=== PATIENT | male | born 1965 | race Caucasian/White ===

== ENCOUNTER 2017-03-24 03:45 | Inpatient (IN) | payer OTHER ==
[~2017-03-24] VITALS: Ht 172.7 cm; Wt 107.2 kg
[2017-03-24] VITALS (17 sets, daily range): BP systolic 90–151; BP diastolic 67–128
[2017-03-24 04:27] LABS: BASE EXCESS 0.7 mEq/L (-3 to +3); BICARBONATE 29.3 mEq/L (22-26); METHEMOGLOBIN 0.6 % (0-1.5); PCO2 61 mm Hg (35-45); PO2 127 mm Hg (80-100)
[2017-03-24 04:28] LABS: COMMENTS - BLOOD GASES A+C+; DEVICE VENT; FI02 50 %; MODE SPONT; PEEP 5 CM/H20; PRES. SUPPORT 10 CM/H2O; SITE RR; TOTAL RESP RATE 28 resp/min; pH 7.29 (7.35-7.45)
[2017-03-24 04:59] LABS: BASOPHIL COUNT 0.1 K/uL (0-0.1); EOSINOPHIL (%) 0.1 % (0-5); HEMATOCRIT 52.6 % (38.0-50.0); IMMATURE GRANULOCYTE (%) 0.6 % (0.0-0.7); IMMATURE GRANULOCYTE COUNT 0.1 K/uL; LYMPHOCYTE COUNT 2.1 K/uL (1.0-2.8); MCH 29.3 PG (29.0-34.0); MCHC 31.4 G/DL (30.0-36.0); MCV 93.3 FL (86-99); MEAN PLAT.VOLUME 8.9 uM^3 (9.0-12.4); MONOCYTE (%) 8.9 % (3-12); MONOCYTE COUNT 1.3 K/uL (0-0.8); NEUTROPHIL (%) 75.9 % (45-76); PLATELET COUNT 292 K/uL (156-360); RBC DIS.WIDTH-CV 13.4 % (11.8-14.6); RBC DIS.WIDTH-SD 46.1 % (39-53); RED BLOOD COUNT 5.64 M/uL (4.00-5.50); WHITE BLOOD COUNT 14.5 K/uL (4.1-10.2)
[2017-03-24 05:06] LABS: INTER. NORMALIZED RATIO 1.1; PROTHROMBIN TIME 12.5 SEC (10.2-12.9)
[2017-03-24 05:09] LABS: PTT 31.2 SEC (25-37)
[2017-03-24 05:10] LABS: CHLORIDE 103 mEq/L (99-109); POTASSIUM 4.5 mEq/L (3.7-5.4); SODIUM 143 mEq/L (136-147)
[2017-03-24 05:12] LABS: GLUCOSE 152 mg/dL (70-99)
[2017-03-24 05:14] LABS: ANION GAP 16 MEQ/L (2-14); TOTAL BILIRUBIN 0.5 mg/dL (0.0-1.0)
[2017-03-24 05:16] LABS: ALKALINE PHOSPHATASE 106 IU/L (3-129); GFR ESTIMATE (CALCULATED) > 59 mL/min/
[2017-03-24 05:17] LABS: UREA NITROGEN (BUN) 14 mg/dL (9-23)
[2017-03-24 05:19] LABS: LIPASE 10 U/L (1.0-51.0)
[2017-03-24 05:22] LABS: TROP-I INTERPRETATION NEGATIVE; TROPONIN-I < 0.01 ng/mL (0.0-0.30)
[2017-03-24 05:45] LABS: BASE EXCESS 1.4 mEq/L (-3 to +3); BICARBONATE 30.5 mEq/L (22-26); CARBOXY HGB 1.1 % (0-5); COMMENTS - BLOOD GASES A+C+; DEVICE VENT; FI02 50 %; METHEMOGLOBIN 0.6 % (0-1.5); PCO2 65 mm Hg (35-45); PO2 104 mm Hg (80-100); SITE RR; pH 7.28 (7.35-7.45)
[2017-03-24 05:46] LABS: MODE SPONT; PEEP 5 CM/H20; PRES. SUPPORT 10 CM/H2O; TOTAL RESP RATE 20 resp/min
[2017-03-24] MEDS ORDERED: ADVAIR 500/501 DISK IH (08:38)
[2017-03-24] MEDS ORDERED: COMBIVENT RESPIM4 GM IH (08:39)
[2017-03-24] MEDS ORDERED: PRILOSEC20 MG PO (08:39)
[2017-03-24] MEDS ORDERED: ALBUTEROL2.5 MG/3 M IH (08:44)
[2017-03-24 09:11] LABS: METH RESISTANT S AUREUS PCR NEGATIVE (NEGATIVE)
[2017-03-24 09:12] LABS: PROBE CHECK PASS; SPECIMEN PROCESSING CONTROL PASS
[2017-03-25] VITALS (17 sets, daily range): BP systolic 100–151; BP diastolic 62–100
[2017-03-25 05:07] LABS: EOSINOPHIL (%) 0 % (0-5); HEMATOCRIT 47.9 % (38.0-50.0); IMMATURE GRANULOCYTE (%) 0.7 % (0.0-0.7); IMMATURE GRANULOCYTE COUNT 0.1 K/uL; LYMPHOCYTE COUNT 0.9 K/uL (1.0-2.8); MCH 30.3 PG (29.0-34.0); MCHC 31.7 G/DL (30.0-36.0); MCV 95.6 FL (86-99); MEAN PLAT.VOLUME 8.8 uM^3 (9.0-12.4); MONOCYTE (%) 7.1 % (3-12); MONOCYTE COUNT 0.6 K/uL (0-0.8); NEUTROPHIL (%) 81.6 % (45-76); PLATELET COUNT 279 K/uL (156-360); RBC DIS.WIDTH-CV 13.7 % (11.8-14.6); RBC DIS.WIDTH-SD 48.6 % (39-53); RED BLOOD COUNT 5.01 M/uL (4.00-5.50); WHITE BLOOD COUNT 8.6 K/uL (4.1-10.2)
[2017-03-25 05:43] LABS: BICARBONATE 30.9 mEq/L (22-26); CARBOXY HGB 0.9 % (0-5); METHEMOGLOBIN 0.9 % (0-1.5); pH 7.32 (7.35-7.45)
[2017-03-25 05:44] LABS: COMMENTS - BLOOD GASES A+C+; DEVICE MASK VENT; FI02 28 %; MODE SPONT; PCO2 60 mm Hg (35-45); PEEP 5 CM/H20; PO2 77 mm Hg (80-100); PRES. SUPPORT 12 CM/H2O; SITE LR; TOTAL RESP RATE 16 resp/min
[2017-03-25 05:46] LABS: ALKALINE PHOSPHATASE 73 IU/L (3-129); ANION GAP 7 MEQ/L (2-14); CHLORIDE 106 MEQ/L (99-109); GFR ESTIMATE (CALCULATED) > 59 mL/min/; GLUCOSE 137 mg/dL (70-99); MAGNESIUM 2.7 mg/dl (1.3-2.7); POTASSIUM 5.1 MEQ/L (3.7-5.4); SAMPLE HEMOLYSIS CHECK 0; SAMPLE ICTERIC CHECK 0; SAMPLE LIPEMIA CHECK 0; SODIUM 144 MEQ/L (136-147); TOTAL BILIRUBIN 0.4 MG/DL (0.0-1.0); UREA NITROGEN (BUN) 17 mg/dL (9-23)
[2017-03-26] VITALS (21 sets, daily range): BP systolic 95–146; BP diastolic 48–98
[2017-03-26 05:33] LABS: EOSINOPHIL (%) 0 % (0-5); HEMATOCRIT 46.4 % (38.0-50.0); IMMATURE GRANULOCYTE (%) 0.8 % (0.0-0.7); IMMATURE GRANULOCYTE COUNT 0.1 K/uL; INSTRUMENT ABS NEUTROPHIL CT 8.6 K/uL; MCH 30.4 PG (29.0-34.0); MCHC 31.7 G/DL (30.0-36.0); MCV 95.9 FL (86-99); MEAN PLAT.VOLUME 9.4 uM^3 (9.0-12.4); MONOCYTE (%) 6.8 % (3-12); MONOCYTE COUNT 0.7 K/uL (0-0.8); NEUTROPHIL (%) 82.7 % (45-76); NEUTROPHIL COUNT 8.6 K/uL (1.8-6.4); PLATELET COUNT 300 K/uL (156-360); RBC DIS.WIDTH-CV 13.6 % (11.8-14.6); RBC DIS.WIDTH-SD 47.7 % (39-53); RED BLOOD COUNT 4.84 M/uL (4.00-5.50); WHITE BLOOD COUNT 10.3 K/uL (4.1-10.2)
[2017-03-26 05:57] LABS: ANION GAP 9 MEQ/L (2-14); CHLORIDE 104 MEQ/L (99-109); GFR ESTIMATE (CALCULATED) > 59 mL/min/; GLUCOSE 124 mg/dL (70-99); MAGNESIUM 2.7 mg/dl (1.3-2.7); SAMPLE HEMOLYSIS CHECK 0; SAMPLE ICTERIC CHECK 0; SAMPLE LIPEMIA CHECK 0; SODIUM 142 MEQ/L (136-147); UREA NITROGEN (BUN) 21 mg/dL (9-23)
[2017-03-27] VITALS (9 sets, daily range): BP systolic 125–146; BP diastolic 59–96
[2017-03-27 04:05] LABS: BASE EXCESS 4.4 mEq/L (-3 to +3); BICARBONATE 31.2 mEq/L (22-26); CARBOXY HGB 0.9 % (0-5); PCO2 54 mm Hg (35-45); PO2 66 mm Hg (80-100); SITE RR; pH 7.37 (7.35-7.45)
[2017-03-27 04:06] LABS: COMMENTS - BLOOD GASES C+A+; DEVICE HHFNC; FI02 30 %; O2 FLOW 30 L/MIN; TOTAL RESP RATE 18 resp/min
[2017-03-28 03:30] VITALS: BP 127/75
[2017-03-28 06:01] LABS: HEMATOCRIT 45.2 % (38.0-50.0); MCH 28.8 PG (29.0-34.0); MEAN PLAT.VOLUME 9.1 uM^3 (9.0-12.4); PLATELET COUNT 275 K/uL (156-360); RBC DIS.WIDTH-CV 12.9 % (11.8-14.6); RBC DIS.WIDTH-SD 44.4 % (39-53); RED BLOOD COUNT 4.86 M/uL (4.00-5.50); WHITE BLOOD COUNT 9.4 K/uL (4.1-10.2)
[2017-03-28 06:27] LABS: ANION GAP 4 MEQ/L (2-14); CHLORIDE 102 MEQ/L (99-109); GFR ESTIMATE (CALCULATED) > 59 mL/min/; GLUCOSE 155 mg/dL (70-99); POTASSIUM 4.8 MEQ/L (3.7-5.4); SAMPLE HEMOLYSIS CHECK 0; SAMPLE ICTERIC CHECK 0; SAMPLE LIPEMIA CHECK 0; SODIUM 142 MEQ/L (136-147); UREA NITROGEN (BUN) 19 mg/dL (9-23)
[2017-03-28 07:34] VITALS: BP 153/91
[2017-03-28 11:35] VITALS: BP 157/77
[2017-03-28 16:15] VITALS: BP 142/88
[2017-03-28 20:06] VITALS: BP 150/78
[2017-03-28 23:03] VITALS: BP 145/74
[2017-03-29 05:00] VITALS: BP 150/77
[2017-03-29 06:10] LABS: ANION GAP 8 MEQ/L (2-14); CHLORIDE 100 MEQ/L (99-109); GFR ESTIMATE (CALCULATED) > 59 mL/min/; GLUCOSE 166 mg/dL (70-99); POTASSIUM 4.3 MEQ/L (3.7-5.4); SAMPLE HEMOLYSIS CHECK 0; SAMPLE ICTERIC CHECK 0; SAMPLE LIPEMIA CHECK 0; SODIUM 142 MEQ/L (136-147); UREA NITROGEN (BUN) 17 mg/dL (9-23)
[2017-03-29 07:30] VITALS: BP 140/75
[2017-03-29 12:00] VITALS: BP 140/80
[2017-03-29 15:07] VITALS: BP 145/82
[2017-03-29 19:32] VITALS: BP 143/88
[2017-03-30] VITALS: BP 177/90
[2017-03-30 04:46] VITALS: BP 160/82
[2017-03-30] MEDS ORDERED: FUROSEMIDE40 MG PO (08:35)
[2017-03-30] MEDS ORDERED: SPIRIVA1 INHALATI IH (08:35)
[2017-03-30] MEDS ORDERED: NICOTINE PATCH1 EAC2 TD (08:35)
[2017-03-30] MEDS ORDERED: LEVAQUIN750 MG PO (08:35)
[2017-03-30] MEDS ORDERED: PREDNISONE10 MG PO (08:35)
== END 2017-03-30 09:30 | disposition home health service (06) | DRG 189 ==
LOC: EME → EDBD 03:45 → EME 03:45 → 4WEST 05:51 → EDOF 05:51 → 4EAST 05:51 → ENRESERV 05:52 → 4WEST 07:29 → ENRESERV 03-27 06:36 → 4WEST 03-27 06:40 → 4EAST 03-27 07:39
PROVIDERS: Emergency Medicine; Internal Medicine; Internal Medicine Critical Care Medicine; Specialist
DX: J96.01 Acute respiratory failure with hypoxia (principal); J44.0 Chronic obstructive pulmonary disease with (acute) lower respiratory infection; J47.0 Bronchiectasis with acute lower respiratory infection; J44.1 Chronic obstructive pulmonary disease with (acute) exacerbation; E87.2 Acidosis; I49.3 Ventricular premature depolarization; I10 Essential (primary) hypertension; J20.9 Acute bronchitis, unspecified; J96.02 Acute respiratory failure with hypercapnia; Z68.35 Body mass index [BMI] 35.0-35.9, adult; J81.1 Chronic pulmonary edema; I27.2 Other secondary pulmonary hypertension; I08.1 Rheumatic disorders of both mitral and tricuspid valves; Z87.891 Personal history of nicotine dependence
CPT/HCPCS: 36600; 71010; 71020; 71250; 80048; 80053; 82803; 83605; 83690; 83735; 83880; 84100; 84484; 85025; 85027; 85610; 85730; 87040; 87070; 87205; 87641; 93005; 93306; 94002; 94003; 94640; 94640 76; 94760; 94799; 99202; 99281; 99285; J0456; J0696; J1644; J1940; J1956; J2930; J3475; J7030; J7050; J7512; J7644; S0028